=== PATIENT | male | born 1945 | race Caucasian/White ===

== ENCOUNTER 2018-07-27 07:44 | Emergency (ER) | payer OTHER ==
--- NOTE | 2018-07-27 08:08 | ER Report ---
History and Physical Time Seen By MD: 08:06 Hx. of Stated Complaint: PATIENT HAD A NEEDLE BIOPSY PERFORMED 1 WEEK AGO. HE BELIEVES THE SITE TO BE INFECTED. HPI/ROS CHIEF COMPLAINT: Pain behind the ear HISTORY OF PRESENT ILLNESS: 73-year-old male who approximately 1 week ago had a fine-needle aspiration of his right parotid gland for concerning for a mass noted yesterday some pain in the posterior auricular area to the right mastoid [place] get some significant tenderness and swelling in that area was concerned about the being a possible infection denies fever chills or sweats nausea vomiting headaches blurry vision or neurological complaints REVIEW OF SYSTEMS: Respiratory: No cough, no dyspnea. Cardiovascular: No chest pain, no palpitations. Gastrointestinal: No vomiting, no abdominal pain. Musculoskeletal: No back pain. Remainder of the 14 system rev: Yes Allergies: Coded Allergies: No Known Drug Allergies (Unverified , 07/27/18) Reviewed Nurses Notes: Yes Old Medical Records Reviewed: Yes Hx Substance Use Disorder: No Hx Alcohol Use: No Constitutional Vital Sign - Last 24 Hours 07/27/18 07:48 Pulse 62 Resp 24 B/P (MAP) 141/73 Pulse Ox 89 O2 Delivery Room Air Physical Exam General Appearance: The patient is alert, has no immediate need for airway protection and no current signs of toxicity. [ ] Eyes: Pupils equal and round no injection. Respiratory: Chest is non tender, lungs are clear to auscultation. Cardiac: regular rate and rhythm [ ] Gastrointestinal: Abdomen is soft and non tender, no masses, bowel sounds normal. Musculoskeletal: Neck: Neck is supple and non tender. Extremities have full range of motion and are non tender. Skin: No rashes or lesions. HEENT tenderness the right mastoid area with percussive tenderness some mild swelling and erythema noted Concerning for mastoiditis Medical Decision Making ED Course/Re-evaluation ED Course ED clinical course [id number] male status post 1 week from a parotid pine-needle aspiration comes in with right posterior mastoid discomfort concerning for mastoiditis CT scan shows no sign of infection we'll start him on by mouth antibiotics up with ENT Decision to Disposition Date: July 27, 2018 Decision to Disposition Time: 09:09 Depart Departure Latest Vital Signs Vital Signs Date Time Temp Pulse Resp B/P (MAP) Pulse Ox O2 Delivery O2 Flow Rate FiO2 07/27/18 07:48 62 24 141/73 89 Room Air Impression: Primary Impression: Infection Condition: Condition Unchanged Disposition: HOME OR SELF-CARE New Scripts Amoxicillin (AMOXICILLIN) 500 Mg Capsule 1 CAP PO Q8H, #15 CAPSULE 0 Refills TAKE ONE CAPSULE BY MOUTH EVERY 8 HOURS Prov: HETAL DE JESUS MD 07/27/18 Patient Instructions: Parotidectomy (DC) HETAL DE JESUS MD July 27, 2018 08:08
--- NOTE | 2018-07-27 08:52 | RADIOLOGY IMAGING REPORT ---
FACILITY: [facility] [place] PATIENT NAME: Doug Gonzalez : 1945 MR: [id number] V: [id number] EXAM DATE: ORDERING PHYSICIAN: HETAL DE JESUS TECHNOLOGIST: Location: [facility] Patient: Doug Gonzalez : 1945 Visit/Account:[id number] Date of Sevice: 07/27/2018 EXAMINATION: CT head without IV contrast HISTORY: Rule out mastoiditis. Pain behind right ear, biopsy 2 days ago. COMPARISON: None. TECHNIQUE: Contiguous axial images were obtained from the skull base to the vertex without intraven ous contrast. Sagittal and coronal reformatted images are also submitted. One of the following dose optimization techniques was utilized in the performance of this exam: Autom ated exposure control; adjustment of the mA and/or kV according to the patient's size; or use of an i terative reconstruction technique. Specific details can be referenced in the facility's radiology C T exam operational policy. FINDINGS: Brain volume: Normal. Ventricles: Normal. Acute ischemic changes: None. Hemorrhage: No acute intracranial hemorrhage. Masses/edema: None. Blount-white: Negative. White matter: Patchy hypodensities in the deep white matter bilaterally. Vessels: Calcified plaque of both carotid siphons. Extra-axial: Negative. Calvarium/scalp: Negative. Skull base/visualized face: Negative. Visualized sinuses/orbits: Minimal mucosal thickening in the bilateral ethmoid air cells and left sp henoid sinus. No mastoid air cell or middle ear cavity fluid. There is no focal abnormality in the sc alp adjacent to the mastoid air cells on either side. IMPRESSION: 1. No mastoiditis or adjacent scalp abnormality. 2. No intracranial mass lesion or hemorrhage. No CT evidence of acute infarct. 3. [id number]-[id number] nonspecific white matter disease is suspicious for chronic small vessel ischemia. Report Dictated By: Tara Geronimo MD at 07/27/2018 8:43 AM Report E-Signed By: Tara Geronimo MD at 07/27/2018 8:46 AM WSN:[id number]
[2018-07-27 09:00] VITALS: BP 145/76
[2018-07-27] MEDS ORDERED: AMOX-362 PO (09:10)
== END 2018-07-27 09:32 | disposition home or self-care (01) ==
LOC: ER 08:24
DX: R22.0 Localized swelling, mass and lump, head (principal); L53.9 Erythematous condition, unspecified
CPT/HCPCS: 70450; 99284

== ENCOUNTER → 2018-07-29 | Outpatient (CLI) | payer MEDICARE, OTHER ==
[~2018-07-29] MED LIST: AMOX-362 PO; IOPAMIDOL 76% 100 ML INFUS BTL 100 ML ONE
--- NOTE | 2018-07-29 15:03 | RADIOLOGY IMAGING REPORT ---
FACILITY: [facility] PATIENT NAME: Doug Gonzalez : 1945 MR: [id number] V: [id number] EXAM DATE: ORDERING PHYSICIAN: ARCHANA BRAGA TECHNOLOGIST: Location: [facility] Patient: Doug Gonzalez : 1945 Visit/Account:[id number] Date of Sevice: 07/29/2018 Study: CT scan of the neck without and with intravenous contrast Indication: Jaw pain just inferior to the mastoid Contrast utilized: 75 mL Isovue 370 Technique: Multiple axial images were obtained through the neck before and after the intravenous admi nistration of iodinated contrast. Coronal and sagittal two-dimensional reconstructions were made from the original data set. One of the following dose optimization techniques was utilized in the performance of this exam: Autom ated exposure control; adjustment of the mA and/or kV according to the patient's size; or use of an i terative reconstruction technique. Specific details can be referenced in the facility's radiology C T exam operational policy. There are bilateral punctate calcifications identified within the parotid glands. This is most consis tent with chronic parotiditis. There is heterogeneous contrast enhancement of the right parotid gland . The right parotid gland is enlarged as compared to the left. This is consistent with acute parotidi tis. There is an area of hypoenhancement within the posterior parotid gland. This measures 1.4 x 1.9 x 2.3 cm. This may represent a small abscess. There is mild induration of the subcutaneous soft tissu es adjacent to the right parotid. The left parotid demonstrates no evidence of abnormal contrast enhancement. There is no evidence of a bscess within the left parotid. The submandibular glands are unremarkable bilaterally. There is no evidence of significant cervical a denopathy. There is no evidence of abnormality of the airway. The thyroid gland is unremarkable in ap pearance. There is no evidence of abnormality of the visualized vascular structures. A 2.5 x 2.3 x 3.5 cm mass is identified within the right apex. This is most consistent with a maligna ncy. IMPRESSION: Nonenhancing fluid collection within the right parotid gland most consistent with abscess . There is mild induration of the subcutaneous soft tissues adjacent to the right parotid. There is h eterogeneous contrast enhancement of the right parotid. This is consistent with acute parotiditis. A 2.5 x 2.3 x 3.5 cm mass is identified within the right apex. Apparently, this is known to the patie nt and [facility]. The above results were relayed to Dr. Braga at 2:55 PM Report Dictated By: Ben Ghosh at 07/29/2018 2:40 PM Report E-Signed By: Ben Ghosh at 07/29/2018 2:59 PM WSN:[id number]
== END ==
LOC: CT 13:03
PROVIDERS: ATTEND Family Medicine
DX: R91.1 Solitary pulmonary nodule (principal); R68.84 Jaw pain
CPT/HCPCS: 70492; Q9967